=== PATIENT | female | born 1945 | race African-American/Black ===

== ENCOUNTER 2023-08-14 10:54 | Emergency (ER) | payer OTHER ==
[~2023-08-14] VITALS: Ht 167.6 cm; Wt 76.7 kg
[2023-08-14] MEDS ORDERED: COZAAR25 MG PO (11:58)
[2023-08-14] MEDS ORDERED: DETROL1 MG (11:59)
[2023-08-14] MEDS ORDERED: FAMOTIDINE/PF 20 MG/2 ML VIAL IV PUSH STA (13:06)
== END 2023-08-14 13:52 | disposition home or self-care (01) ==
LOC: ER 10:54
DX: K21.9 Gastro-esophageal reflux disease without esophagitis (principal)
CPT/HCPCS: 96365; 99282; J3490